=== PATIENT | female | born 1995 | race Two or more races ===

== ENCOUNTER 2020-09-30 05:31 | Observation (INO) | payer OTHER ==
[2020-09-30] VITALS (18 sets, daily range): BP systolic 109–139; BP diastolic 49–86; Ht 162.6 cm; Wt 67.0 kg
[~2020-09-30] VITALS: Ht 162.6 cm; Wt 67.0 kg
[2020-09-30] MEDS ORDERED: ZOLOFT50 MG PO (05:36)
[2020-09-30 06:44] LABS: BASOPHILS 0.3 % (0-2); EOSINOPHILS 0.1 % (0-7); HEMATOCRIT 38.2 % (36.0-48.0); HEMOGLOBIN 12.6 g/dL (12-16); LYMPHOCYTES 6.4 % (15-50); MCH 29.2 pg (26.0-34.0); MCV 88.4 fL (80.0-100.0); MEAN PLATELET VOLUME 8.7 fL (7.4-10.4); MONOCYTES 5.2 % (2-11); PLATELET COUNT 326 10x3/uL (130-400); RBC 4.32 10x6/uL (4.00-5.40); RDW 14.4 % (11.5-14.5); WBC 15.9 10x3/uL (4.8-10.8)
[2020-09-30 06:53] LABS: CALC OSMOLALITY 285 mosm/kg (275-300); CALCIUM 8.3 mg/dL (8.5-10.1); CARBON DIOXIDE 25.1 mmol/L (21.0-32.0); CHLORIDE - SERUM 106 mmol/L (98-107); CREATININE - SERUM 0.7 mg/dL (0.6-1.3); GLUCOSE 126 mg/dL (74-106); SODIUM 143 mmol/L (136-145); UREA NITROGEN 9 mg/dL (7-18); eGFR NON AFRICAN AMERICAN > 90 mL/min (90-120)
[2020-09-30 06:59] LABS: ALBUMIN 3.6 g/dL (3.4-5.0); ALKALINE PHOSPHATASE 88 U/L (30-120); ALT (SGPT) 49 U/L (10-68); BILIRUBIN - TOTAL 0.15 mg/dL (0.2-1.3); PROTEIN - SERUM 7.4 g/dL (6.4-8.2)
--- NOTE | 2020-09-30 07:05 | NUR ---
RECEIVED PT IN T3 LACERATIONS TO HEAD AND RIGHT HAND NOTED. DRS. LANZA AND KELTON IN ROOM. PREPARATIONS BEING MADE FOR SUTURES TO FOREHEAD AND RIGHT HAND.
[2020-09-30 07:07] LABS: INR 1.23 (0.85-1.17); PROTIME 14.3 SECONDS (11.6-15.0)
[2020-09-30 09:59] LABS: HCG URINE NEGATIVE (NEGATIVE)
[2020-09-30 10:03] LABS: UDS - AMPHET NEGATIVE QUAL (NEGATIVE); UDS - BARB NEGATIVE QUAL (NEGATIVE); UDS - BENZO NEGATIVE QUAL (NEGATIVE); UDS - COCAINE NEGATIVE QUAL (NEGATIVE); UDS - OPIATE POSITIVE QUAL (NEGATIVE); UDS - PCP NEGATIVE QUAL (NEGATIVE); UDS - THC NEGATIVE QUAL (NEGATIVE)
[2020-09-30 10:09] LABS: BILIRUBIN NEGATIVE (NEGATIVE); KETONE NEGATIVE (NEGATIVE); NITRITE NEGATIVE (NEGATIVE); UROBILINOGEN NORMAL mg/dL (< 2)
[2020-09-30 10:10] LABS: SQUAMOUS EPITHELIAL 0-5 HPF (0-4)
[2020-09-30 10:11] LABS: BACTERIA MODERATE HPF (NONE SEEN)
--- NOTE | 2020-09-30 13:15 | NUR ---
PT ARRIVED TO UNIT AROUND 1300. AA&OX4. 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 LACERATION WITH STITCHES NOTED TO LEFT SIDE OF FOREHEAD. ABRASION NOTED TO LEFT NECK/CHEST AREA AND TO RIGHT HIP. BRUISE NOTED ON LEFT THIGH. PIV TO LEFT AC SALINE LOC. DRESSING TO RIGHT HAND WITH QUARTER SIZE BLEEDING NOTED. RATES PAIN 7/10, THROBBING. WILL NOTIFY MD. CALL LIGHT IN REACH. SAFETY MEASURES IN PLACE. WILL CONTINUE TO MONITOR.
--- NOTE | 2020-09-30 16:15 | NUR ---
SPOKE WITH LAB REGARDING URINE SPECIMEN. LAB HAD SPECIMEN THAT WAS SENT FROM ER. NO NEED FOR URINE TO BE SENT DOWN AT THIS TIME.
[2020-10-01] VITALS (10 sets, daily range): BP systolic 96–120; BP diastolic 49–74
[2020-10-01 06:27] LABS: BASOPHILS 0.6 % (0-2); EOSINOPHILS 0.9 % (0-7); HEMOGLOBIN 11.4 g/dL (12-16); LYMPHOCYTES 23.1 % (15-50); MCHC 33.7 g/dL (31.0-37.0); MCV 89.1 fL (80.0-100.0); MEAN PLATELET VOLUME 9.3 fL (7.4-10.4); MONOCYTES 10.5 % (2-11); NEUTROPHILS 64.9 % (40-80); RBC 3.82 10x6/uL (4.00-5.40); RDW 14.1 % (11.5-14.5)
[2020-10-01 06:28] LABS: PLATELET COUNT 253 10x3/uL (130-400); WBC 7.4 10x3/uL (4.8-10.8)
[2020-10-01 06:29] LABS: ALBUMIN 3.3 g/dL (3.4-5.0); ALKALINE PHOSPHATASE 76 U/L (30-120); BILIRUBIN - TOTAL 0.63 mg/dL (0.2-1.3); CALC OSMOLALITY 276 mosm/kg (275-300); CALCIUM 8.1 mg/dL (8.5-10.1); CARBON DIOXIDE 28.3 mmol/L (21.0-32.0); CHLORIDE - SERUM 102 mmol/L (98-107); CREATININE - SERUM 0.7 mg/dL (0.6-1.3); GLUCOSE 113 mg/dL (74-106); PROTEIN - SERUM 6.8 g/dL (6.4-8.2); SODIUM 139 mmol/L (136-145); UREA NITROGEN 8 mg/dL (7-18); eGFR NON AFRICAN AMERICAN > 90 mL/min (90-120)
[2020-10-01 06:30] LABS: ALT (SGPT) 36 U/L (10-68); POTASSIUM - SERUM 3.2 mmol/L (3.5-5.1)
--- NOTE | 2020-10-01 08:35 | NUR ---
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 DR. MENENDEZ CALLED TO VERIFY THAT HE STILL WANTED ECHO. PER DR. ZAMORA YESTERDAY, PT DID NOT NEED ECHO SINCE HR WAS 85 ON ARRIVAL TO UNIT. DISCUSS WITH DR. MENENDEZ. HE WANTED TO GO AHEAD AND GET ECHO THIS AM.
--- NOTE | 2020-10-01 13:13 | NUR ---
POTASSIUM RECHECK 3.8. NO NEED FOR TREATMENT PER PROTOCOL. CALL RECEIVED FROM DR. THORNTON. PATIENT IS GOOD TO GO FROM HIS STANDPOINT. DR. MENENDEZ NOTIFIED. OKAY TO DISCHARGE PT AT THIS TIME.
--- NOTE | 2020-10-01 14:12 | NUR ---
DISCHARGED REVIEWED WITH PATIENT. DRESSING TO RIGHT HAND CHANGED. CLEANED WITH NORMAL SALINE. NO SIGNS OF INFECTION NOTED. STITCHES IN PLACE. COVERED WITH 4X4S AND SECURED WITH CURLEX. PT TOLERATED WELL. PIV TO L-AC DC'D PER PROTOCOL. PERSONAL BELONGINGS SENT WITH PT. WHEELED OUT TO PERSONAL VEHICLE BY HOSPITAL STAFF.
--- NOTE | 2020-10-02 08:32 | EC ---
PATIENT:WESLEY LYNCH DATE OF SERVICE: 09/30/20 SEX: F MEDICAL RECORD: [id number] DATE OF : [birth year] LOCATION:[place] [id number] AGE OF PATIENT: 24 ADMISSION DATE: 09/30/20 REFERRING PHYSICIAN: INTERPRETING PHYSICIAN: BAILEY THORNTON MD ECHOCARDIOGRAM REPORT ECHO CHARGES 4 ECHO COMPLETE Date: 10/01/20 CLINICAL DIAGNOSIS: LVH ECHOCARDIOGRAPHIC MEASUREMENTS (adult normal given) AC root (d.<3.7cm) 2.7 cm LV Septum d (<1.2 cm> 0.8 cm Valve Excursion 1.6 cm LV Septum (systole) 1.1 cm Left Atria (s.<4.0cm> 3.1 cm LVPW d(<1.2cm) 0.8 cm RV (d.<2.3cm) 2.0 cm LVPW (sytole) 1.0 cm LV diastole(<5.6CM) 5.0 cm MV E-F(>70mm/sec) cm LV systole 3.7 cm LVOT Diameter 1.6 cm MV exc.(>10mm) 1.4 cm Est.ejection fraction (50-75%) % DOPPLER: LVIT cm/sec A 53 cm/sec E 88 cm/sec LA cm/sec RVSP 19 mmHg LVOT 144 cm/sec AOP1/2T m/s Asc. Ao 170 cm/sec RVOT 88 cm/sec RA cm/sec PA 125 cm/sec AV Gradient Peak 11.5 mmHg AV Mean 6.1 mmHg AV Area 1.9 cm MV Gradient Peak 5.8 mmHg MV Mean 2.2 mmHg MV Area cm COMMENTS: Bicycle Designer: Jose CRUZ Yoghurt Maker: 3 Dr. Devi TAPE# Pericardial Effusion N DATE OF SERVICE: Adequate 2D, color-flow imaging, spectral Doppler, and M-Mode FINDINGS: No LVH. LV internal dimension is normal. Wall motion is normal. EF is greater than or equal to 55%. Aortic valve is tricuspid. No evidence of stenosis by Doppler interrogation. Left atrium is normal. Mitral valve shows no prolapse. Trace MR. Right side is grossly normal. Trace TR. TRANSINT:[id number] Voice Confirmation ID: [id number] DOCUMENT ID: [id number] ECHOCARDIOGRAM REPORT [id number] WESLEY LYNCH BAILEY THORNTON MD at 0832 CC: [id number] DICTATION DATE: 10/01/20 1455 CAFE ATTENDANT: 10/01/20 1722 DIS IN 10/01/20 [place] [id number] [place] [address]
== END 2020-10-01 14:16 | disposition home or self-care (01) ==
LOC: D.ER 05:31 → D.MS 09:08 → D.CVICU 09:08 → OBSVTIME 09:08 → D.CVICU 11:29
PROVIDERS: Family Medicine; ADMIT Family Medicine Adult Medicine; ATTEND Family Medicine Adult Medicine
DX: S01.01XA Laceration without foreign body of scalp, initial encounter (principal); V89.2XXA Person injured in unspecified motor-vehicle accident, traffic, initial encounter; Y93.9 Activity, unspecified; Y92.9 Unspecified place or not applicable; S61.411A Laceration without foreign body of right hand, initial encounter; S01.81XA Laceration without foreign body of other part of head, initial encounter; S22.23XA Sternal manubrial dissociation, initial encounter for closed fracture; S60.511A Abrasion of right hand, initial encounter; F10.129 Alcohol abuse with intoxication, unspecified; Y90.6 Blood alcohol level of 120-199 mg/100 ml; F41.9 Anxiety disorder, unspecified; N39.0 Urinary tract infection, site not specified; R07.9 Chest pain, unspecified; R06.02 Shortness of breath